=== PATIENT | female | born 1965 | race Caucasian/White ===

== ENCOUNTER 2020-11-19 17:51 | Inpatient (IN) ==
[2020-11-19] MEDS ORDERED: Albuterol 2.5 MG/3 ML NEBULIZER AER PRN (18:48)
[2020-11-19] MEDS ORDERED: Nitroglycerin 0.4 MG TAB.SUBL SL PRN (18:48)
[2020-11-19] MEDS ORDERED: tiZANidine 4 MG TABLET PO PRN (18:48)
[2020-11-19] MEDS ORDERED: (Diclofenac Sodium [Voltaren] 100 GM Gel..Gram.) TP PRN (18:48)
[2020-11-19] MEDS ORDERED: Divalproex (12 HR) 250 MG TABLET PO SCH (21:00)
[2020-11-20] MEDS: Furosemide 40 MG TABLET PO SCH ×4 (00:45→21:24)
[2020-11-20] MEDS: Gabapentin 400 MG CAPSULE PO SCH ×4 (00:45→21:23)
[2020-11-20 04:27] LABS: Basophils % 0.3 %; Eosinophils # 0.4 K/mcL (0.0-0.6); Eosinophils % 6.5 %; Hemoglobin 9.1 g/dL (11.5-15.4); Lymphocytes # 1.9 K/mcL (0.6-4.6); Lymphocytes % 31.3 %; Mean Corpuscular HGB Conc 28.4 g/dL (31.6-35.5); Mean Corpuscular Hemoglobin 27.7 pg (28.0-33.3); Mean Corpuscular Volume 97.3 fL (83.0-100.0); Mean Platelet Volume 9.3 fL (9.4-12.4); Monocytes # 0.7 K/mcL (0.0-1.3); Monocytes % 12.1 %; Platelet Count 221 K/mcL (140-400); Red Blood Count 3.29 M/mcL (3.82-4.97); Red Cell Distribution Width 25.1 % (11.5-14.5); Segmented Neutrophils % 48.8 %
[2020-11-20 04:40] LABS: INR 1.5
[2020-11-20 04:47] LABS: BUN/Creatinine Ratio 18 (6-26); Blood Urea Nitrogen 12 mg/dL (6-20); Calcium 8.4 mg/dL (8.6-10.3); Carbon Dioxide 34 mEq/L (23-29); Chloride 98 mEq/L (98-107); Glucose 111 mg/dL (70-105); Osmolality,Calculated 284 (280-300); Potassium 3.4 mEq/L (3.5-5.1); Sodium 137 mEq/L (136-145); eGFR For African Americans > 60 (> 60); eGFR For Non-African Americans > 60 (> 60)
[2020-11-20] MEDS: Ipratropium/Albuterol Neb 3 ML IH SCH ×4 (07:07→21:50)
[2020-11-20] MEDS ORDERED: Insulin LISPRO 300 UNITS/3 ML VIAL SUBQ SCH (08:00)
[2020-11-20] MEDS ORDERED: Azelastine 0.1% Nasal Spray 30 ML BOTTLE NS PRN (09:00)
[2020-11-20] MEDS: *HR* Metformin 500 MG TABLET PO SCH ×2 (09:05→16:14)
[2020-11-20] MEDS: Divalproex (12 HR) 250 MG TABLET PO SCH ×2 (09:07→21:23)
[2020-11-20] MEDS: Metoprolol XL (24 HR) Succ 25 MG TAB.ER.24H PO SCH (09:08)
[2020-11-20] MEDS: rOPINIRole 1 MG TABLET PO SCH ×3 (09:08→21:23)
[2020-11-20] MEDS: Loratadine 10 MG TABLET PO SCH (09:08)
[2020-11-20] MEDS: Aspirin Enteric Coated 81 MG Tablet PO SCH (09:09)
[2020-11-20] MEDS: (Liraglutide [Victoza 3-Pak] 0.6 MG/0.1 ML Pen.Injctr) SQ SCH (09:09)
[2020-11-20] MEDS: Magnesium Oxide 400 MG TABLET PO SCH (09:09)
[2020-11-20] MEDS: DilTIAZem CD (24hr) 120 MG CAP.ER.24H PO SCH (09:09)
[2020-11-20] MEDS: Tiotropium 10 INH DOSE IH SCH (11:00)
[2020-11-20] MEDS: Budesonide/Formoterol 160/4.5 1 PUFF INH IH SCH ×2 (11:00→21:49)
[2020-11-20] MEDS: Insulin LISPRO 300 UNITS/3 ML VIAL SUBQ SCH ×3 (11:13→21:14)
[2020-11-20] MEDS ORDERED: *HR* Warfarin 2 MG TABLET PO SCH (18:00)
[2020-11-20] MEDS ORDERED: Lactulose Oral Soln 20 GM/30 ML UDC PO SCH (21:00)
[2020-11-20] MEDS: Mirtazapine 15 MG TABLET PO SCH (21:23)
[2020-11-20] MEDS: Insulin DETEMIR 100 UNIT/ML per UNIT SUBQ SCH (21:24)
[2020-11-20] MEDS: Lactulose Oral Soln 20 GM/30 ML UDC PO SCH (21:35)
[2020-11-21] MEDS: Ipratropium/Albuterol Neb 3 ML IH SCH ×3 (04:29→15:58)
[2020-11-21] MEDS: Insulin LISPRO 300 UNITS/3 ML VIAL SUBQ SCH ×4 (08:05→21:00)
[2020-11-21] MEDS: Lactulose Oral Soln 20 GM/30 ML UDC PO SCH ×3 (08:26→21:11)
[2020-11-21] MEDS: Loratadine 10 MG TABLET PO SCH (08:26)
[2020-11-21] MEDS: Aspirin Enteric Coated 81 MG Tablet PO SCH (08:27)
[2020-11-21] MEDS: Divalproex (12 HR) 250 MG TABLET PO SCH ×2 (08:27→21:10)
[2020-11-21] MEDS: Gabapentin 400 MG CAPSULE PO SCH ×3 (08:27→21:10)
[2020-11-21] MEDS: Magnesium Oxide 400 MG TABLET PO SCH (08:28)
[2020-11-21] MEDS: Metoprolol XL (24 HR) Succ 25 MG TAB.ER.24H PO SCH (08:28)
[2020-11-21] MEDS: Furosemide 40 MG TABLET PO SCH ×2 (08:28→21:11)
[2020-11-21] MEDS: (Liraglutide [Victoza 3-Pak] 0.6 MG/0.1 ML Pen.Injctr) SQ SCH (08:29)
[2020-11-21] MEDS: DilTIAZem CD (24hr) 120 MG CAP.ER.24H PO SCH (08:30)
[2020-11-21] MEDS: rOPINIRole 1 MG TABLET PO SCH ×3 (08:48→21:10)
[2020-11-21 09:43] LABS: INR 1.3; Prothrombin Time 15.3 Seconds (9.4-12.1)
[2020-11-21 09:49] LABS: Basophils % 0.5 %; Eosinophils # 0.4 K/mcL (0.0-0.6); Eosinophils % 6.7 %; Hematocrit 39.5 % (35.3-44.9); Immature Granulocytes % 1.1 % (0-4); Lymphocytes % 32.2 %; Mean Corpuscular HGB Conc 27.8 g/dL (31.6-35.5); Mean Corpuscular Hemoglobin 27.8 pg (28.0-33.3); Mean Corpuscular Volume 99.7 fL (83.0-100.0); Mean Platelet Volume 10.4 fL (9.4-12.4); Monocytes # 0.7 K/mcL (0.0-1.3); Monocytes % 11.3 %; Platelet Count 274 K/mcL (140-400); Red Blood Count 3.96 M/mcL (3.82-4.97); Red Cell Distribution Width 24.9 % (11.5-14.5); Segmented Neutrophils % 48.2 %; White Blood Count 6.3 K/mcL (4.3-11.1)
[2020-11-21] MEDS: Tiotropium 10 INH DOSE IH SCH (09:55)
[2020-11-21] MEDS: Budesonide/Formoterol 160/4.5 1 PUFF INH IH SCH ×2 (09:56→22:08)
[2020-11-21 10:02] LABS: Anisocytosis 3+ (Not Present); Hypochromasia Present (Not Present)
[2020-11-21 10:02] LABS: Alanine Aminotransferase 4 Units/L (7-52); Albumin 3.5 g/dL (3.5-5.7); Albumin/Globulin Ratio 0.9 (1.1-2.2); Alkaline Phosphatase 144 Units/L (34-104); Aspartate Amino Transferase 13 Units/L (13-39); BUN/Creatinine Ratio 14 (6-26); Bilirubin,Total 0.4 mg/dL (0.3-1.0); Blood Urea Nitrogen 14 mg/dL (6-20); Calcium 8.8 mg/dL (8.6-10.3); Carbon Dioxide 32 mEq/L (23-29); Chloride 98 mEq/L (98-107); Globulin 4.1 g/dL (2.4-3.5); Glucose 85 mg/dL (70-105); Osmolality,Calculated 290 (280-300); Potassium 4.2 mEq/L (3.5-5.1); Sodium 140 mEq/L (136-145); Total Protein 7.6 g/dL (6.4-8.9); eGFR For African Americans > 60 (> 60); eGFR For Non-African Americans 56 (> 60)
[2020-11-21 10:03] LABS: Poikilocytosis 1+ (Not Present)
[2020-11-21] MEDS ORDERED: Ipratropium/Albuterol Neb 3 ML IH PRN (16:12)
[2020-11-21] MEDS ORDERED: *HR* Warfarin 2 MG TABLET PO ONE (18:00)
[2020-11-21] MEDS ORDERED: Warfarin perPT PO PRN (18:00)
[2020-11-21] MEDS: *HR* HYDROcodone/Acet 10/325 mg TABLET PO PRN (18:17)
[2020-11-21] MEDS: Mirtazapine 15 MG TABLET PO SCH (21:10)
[2020-11-21] MEDS: Insulin DETEMIR 100 UNIT/ML per UNIT SUBQ SCH (21:11)
[2020-11-22] MEDS: Insulin LISPRO 300 UNITS/3 ML VIAL SUBQ SCH ×4 (07:52→20:40)
[2020-11-22 09:17] LABS: Basophils % 0.2 %; Eosinophils # 0.3 K/mcL (0.0-0.6); Eosinophils % 6.2 %; Hematocrit 36.4 % (35.3-44.9); Hemoglobin 10.2 g/dL (11.5-15.4); Immature Granulocytes % 1.3 % (0-4); Lymphocytes # 1.6 K/mcL (0.6-4.6); Lymphocytes % 29.3 %; Mean Corpuscular Hemoglobin 27.9 pg (28.0-33.3); Mean Corpuscular Volume 99.7 fL (83.0-100.0); Mean Platelet Volume 9.6 fL (9.4-12.4); Monocytes # 0.6 K/mcL (0.0-1.3); Monocytes % 11.6 %; Neutrophils # 2.8 K/mcL (1.6-8.9); Platelet Count 215 K/mcL (140-400); Red Blood Count 3.65 M/mcL (3.82-4.97); Segmented Neutrophils % 51.4 %; White Blood Count 5.5 K/mcL (4.3-11.1)
[2020-11-22] MEDS: Budesonide/Formoterol 160/4.5 1 PUFF INH IH SCH ×2 (09:23→22:29)
[2020-11-22] MEDS: Tiotropium 10 INH DOSE IH SCH (09:24)
[2020-11-22 09:27] LABS: INR 1.4; Prothrombin Time 16.3 Seconds (9.4-12.1)
[2020-11-22 09:35] LABS: Alanine Aminotransferase 3 Units/L (7-52); Albumin 3.4 g/dL (3.5-5.7); Albumin/Globulin Ratio 0.9 (1.1-2.2); Alkaline Phosphatase 136 Units/L (34-104); Aspartate Amino Transferase 12 Units/L (13-39); BUN/Creatinine Ratio 18 (6-26); Bilirubin,Total 0.4 mg/dL (0.3-1.0); Blood Urea Nitrogen 16 mg/dL (6-20); Calcium 8.8 mg/dL (8.6-10.3); Carbon Dioxide 38 mEq/L (23-29); Chloride 100 mEq/L (98-107); Globulin 3.7 g/dL (2.4-3.5); Glucose 60 mg/dL (70-105); Osmolality,Calculated 295 (280-300); Potassium 4.4 mEq/L (3.5-5.1); Sodium 143 mEq/L (136-145); Total Protein 7.1 g/dL (6.4-8.9); eGFR For African Americans > 60 (> 60); eGFR For Non-African Americans > 60 (> 60)
[2020-11-22] MEDS: rOPINIRole 1 MG TABLET PO SCH ×3 (09:54→21:35)
[2020-11-22] MEDS: Furosemide 40 MG TABLET PO SCH ×2 (09:55→16:46)
[2020-11-22] MEDS: Metoprolol XL (24 HR) Succ 25 MG TAB.ER.24H PO SCH (09:56)
[2020-11-22] MEDS: Divalproex (12 HR) 250 MG TABLET PO SCH ×2 (09:56→21:35)
[2020-11-22] MEDS: Loratadine 10 MG TABLET PO SCH (09:56)
[2020-11-22] MEDS: Magnesium Oxide 400 MG TABLET PO SCH (09:56)
[2020-11-22] MEDS: DilTIAZem CD (24hr) 120 MG CAP.ER.24H PO SCH (09:56)
[2020-11-22] MEDS: Lactulose Oral Soln 20 GM/30 ML UDC PO SCH ×3 (09:56→21:35)
[2020-11-22] MEDS: Aspirin Enteric Coated 81 MG Tablet PO SCH (09:56)
[2020-11-22] MEDS: (Liraglutide [Victoza 3-Pak] 0.6 MG/0.1 ML Pen.Injctr) SQ SCH (09:57)
[2020-11-22] MEDS: Gabapentin 400 MG CAPSULE PO SCH ×3 (09:57→21:35)
[2020-11-22 10:26] LABS: Anisocytosis 1+ (Not Present); Hypochromasia Present (Not Present); Platelet Estimate Normal (Normal)
[2020-11-22] MEDS ORDERED: *HR* Warfarin 3 MG TABLET PO ONE (18:00)
[2020-11-22] MEDS: Mirtazapine 15 MG TABLET PO SCH (21:36)
[2020-11-22] MEDS: tiZANidine 4 MG TABLET PO PRN (21:36)
[2020-11-22] MEDS: Insulin DETEMIR 100 UNIT/ML per UNIT SUBQ SCH (21:36)
[2020-11-23] MEDS: Furosemide 40 MG TABLET PO SCH ×2 (06:47→15:02)
[2020-11-23] MEDS: Insulin LISPRO 300 UNITS/3 ML VIAL SUBQ SCH ×4 (07:35→21:38)
[2020-11-23] MEDS: Budesonide/Formoterol 160/4.5 1 PUFF INH IH SCH ×2 (09:08→21:51)
[2020-11-23] MEDS: Tiotropium 10 INH DOSE IH SCH (09:08)
[2020-11-23] MEDS: Lactulose Oral Soln 20 GM/30 ML UDC PO SCH ×3 (09:44→21:29)
[2020-11-23] MEDS: Divalproex (12 HR) 250 MG TABLET PO SCH ×2 (09:45→21:28)
[2020-11-23] MEDS: rOPINIRole 1 MG TABLET PO SCH ×3 (09:45→21:28)
[2020-11-23] MEDS: Aspirin Enteric Coated 81 MG Tablet PO SCH (09:46)
[2020-11-23] MEDS: Magnesium Oxide 400 MG TABLET PO SCH (09:46)
[2020-11-23] MEDS: Gabapentin 400 MG CAPSULE PO SCH ×3 (09:47→21:28)
[2020-11-23] MEDS: DilTIAZem CD (24hr) 120 MG CAP.ER.24H PO SCH (09:47)
[2020-11-23] MEDS: Loratadine 10 MG TABLET PO SCH (09:47)
[2020-11-23] MEDS: Metoprolol XL (24 HR) Succ 25 MG TAB.ER.24H PO SCH (09:48)
[2020-11-23] MEDS: (Liraglutide [Victoza 3-Pak] 0.6 MG/0.1 ML Pen.Injctr) SQ SCH (09:48)
[2020-11-23 13:29] LABS: Basophils % 0.4 %; Eosinophils # 0.4 K/mcL (0.0-0.6); Hematocrit 38.4 % (35.3-44.9); Hemoglobin 10.9 g/dL (11.5-15.4); Immature Granulocytes % 0.6 % (0-4); Lymphocytes # 1.4 K/mcL (0.6-4.6); Lymphocytes % 20.2 %; Mean Corpuscular HGB Conc 28.4 g/dL (31.6-35.5); Mean Corpuscular Volume 98.7 fL (83.0-100.0); Mean Platelet Volume 10.6 fL (9.4-12.4); Monocytes # 0.8 K/mcL (0.0-1.3); Monocytes % 11.8 %; Neutrophils # 4.4 K/mcL (1.6-8.9); Platelet Count 218 K/mcL (140-400); Red Blood Count 3.89 M/mcL (3.82-4.97); Red Cell Distribution Width 23.9 % (11.5-14.5); White Blood Count 7.1 K/mcL (4.3-11.1)
[2020-11-23 13:38] LABS: INR 1.4; Prothrombin Time 15.7 Seconds (9.4-12.1)
[2020-11-23 13:46] LABS: Alanine Aminotransferase 3 Units/L (7-52); Albumin 3.4 g/dL (3.5-5.7); Albumin/Globulin Ratio 0.9 (1.1-2.2); Alkaline Phosphatase 143 Units/L (34-104); Aspartate Amino Transferase 16 Units/L (13-39); BUN/Creatinine Ratio 15 (6-26); Bilirubin,Total 0.4 mg/dL (0.3-1.0); Blood Urea Nitrogen 13 mg/dL (6-20); Calcium 8.7 mg/dL (8.6-10.3); Carbon Dioxide 37 mEq/L (23-29); Chloride 99 mEq/L (98-107); Globulin 3.7 g/dL (2.4-3.5); Glucose 101 mg/dL (70-105); Osmolality,Calculated 296 (280-300); Potassium 4.4 mEq/L (3.5-5.1); Sodium 143 mEq/L (136-145); Total Protein 7.1 g/dL (6.4-8.9); eGFR For African Americans > 60 (> 60); eGFR For Non-African Americans > 60 (> 60)
[2020-11-23 14:27] LABS: Anisocytosis 1+ (Not Present); Hypochromasia Present (Not Present); Platelet Estimate Normal (Normal)
[2020-11-23] MEDS ORDERED: *HR* Warfarin 2 MG TABLET PO ONE (18:00)
[2020-11-23] MEDS: *HR* HYDROcodone/Acet 10/325 mg TABLET PO PRN (18:01)
[2020-11-23] MEDS: Mirtazapine 15 MG TABLET PO SCH (21:28)
[2020-11-23] MEDS: tiZANidine 4 MG TABLET PO PRN (21:38)
[2020-11-23] MEDS: Insulin DETEMIR 100 UNIT/ML X5UNITS SUBQ SCH (21:40)
[2020-11-24] MEDS: Furosemide 40 MG TABLET PO SCH ×2 (05:14→14:58)
[2020-11-24 08:01] LABS: INR 1.3; Prothrombin Time 15.3 Seconds (9.4-12.1)
[2020-11-24] MEDS: Lactulose Oral Soln 20 GM/30 ML UDC PO SCH ×3 (08:18→21:16)
[2020-11-24] MEDS: Divalproex (12 HR) 250 MG TABLET PO SCH ×2 (08:20→21:16)
[2020-11-24] MEDS: rOPINIRole 1 MG TABLET PO SCH ×3 (08:20→21:16)
[2020-11-24] MEDS: Aspirin Enteric Coated 81 MG Tablet PO SCH (08:20)
[2020-11-24] MEDS: (Liraglutide [Victoza 3-Pak] 0.6 MG/0.1 ML Pen.Injctr) SQ SCH (08:21)
[2020-11-24] MEDS: Loratadine 10 MG TABLET PO SCH (08:21)
[2020-11-24] MEDS: DilTIAZem CD (24hr) 120 MG CAP.ER.24H PO SCH (08:21)
[2020-11-24] MEDS: Gabapentin 400 MG CAPSULE PO SCH ×3 (08:21→21:16)
[2020-11-24] MEDS: Magnesium Oxide 400 MG TABLET PO SCH (08:21)
[2020-11-24] MEDS: Metoprolol XL (24 HR) Succ 25 MG TAB.ER.24H PO SCH (08:22)
[2020-11-24] MEDS: Insulin LISPRO 300 UNITS/3 ML VIAL SUBQ SCH ×4 (08:22→21:17)
[2020-11-24] MEDS: Budesonide/Formoterol 160/4.5 1 PUFF INH IH SCH ×2 (10:37→21:59)
[2020-11-24] MEDS: Tiotropium 10 INH DOSE IH SCH (10:37)
[2020-11-24] MEDS: *HR* HYDROcodone/Acet 10/325 mg TABLET PO PRN (16:02)
[2020-11-24] MEDS ORDERED: *HR* Warfarin 2 MG TABLET PO ONE (18:00)
[2020-11-24] MEDS: Insulin DETEMIR 100 UNIT/ML X5UNITS SUBQ SCH (21:16)
[2020-11-24] MEDS: Mirtazapine 15 MG TABLET PO SCH (21:16)
[2020-11-24] MEDS: tiZANidine 4 MG TABLET PO PRN (21:17)
[2020-11-25] MEDS: *HR* HYDROcodone/Acet 10/325 mg TABLET PO PRN ×2 (05:13→15:32)
[2020-11-25] MEDS: Furosemide 40 MG TABLET PO SCH ×2 (05:13→15:24)
[2020-11-25 07:12] LABS: INR 1.5; Prothrombin Time 17.1 Seconds (9.4-12.1)
[2020-11-25] MEDS: DilTIAZem CD (24hr) 120 MG CAP.ER.24H PO SCH (08:45)
[2020-11-25] MEDS: Lactulose Oral Soln 20 GM/30 ML UDC PO SCH ×3 (08:45→21:46)
[2020-11-25] MEDS: Divalproex (12 HR) 250 MG TABLET PO SCH ×2 (08:46→21:45)
[2020-11-25] MEDS: Magnesium Oxide 400 MG TABLET PO SCH (08:47)
[2020-11-25] MEDS: Gabapentin 400 MG CAPSULE PO SCH ×3 (08:47→21:45)
[2020-11-25] MEDS: rOPINIRole 1 MG TABLET PO SCH ×3 (08:47→21:44)
[2020-11-25] MEDS: Loratadine 10 MG TABLET PO SCH (08:47)
[2020-11-25] MEDS: Aspirin Enteric Coated 81 MG Tablet PO SCH (08:47)
[2020-11-25] MEDS: Insulin LISPRO 300 UNITS/3 ML VIAL SUBQ SCH ×4 (08:48→22:05)
[2020-11-25] MEDS: Tiotropium 10 INH DOSE IH SCH (10:12)
[2020-11-25] MEDS: Budesonide/Formoterol 160/4.5 1 PUFF INH IH SCH ×2 (10:12→22:04)
[2020-11-25] MEDS: (Liraglutide [Victoza 3-Pak] 0.6 MG/0.1 ML Pen.Injctr) SQ SCH (12:13)
[2020-11-25] MEDS ORDERED: *HR* Warfarin 5 MG TABLET PO ONE (18:00)
[2020-11-25] MEDS: Mirtazapine 15 MG TABLET PO SCH (21:45)
[2020-11-25] MEDS: Insulin DETEMIR 100 UNIT/ML X5UNITS SUBQ SCH (21:46)
[2020-11-26] MEDS: Furosemide 40 MG TABLET PO SCH ×2 (04:57→15:03)
[2020-11-26 05:30] LABS: INR 1.6; Prothrombin Time 18.3 Seconds (9.4-12.1)
[2020-11-26] MEDS ORDERED: *HR* Heparin 5,000 UNIT/ML VIAL SQ SCH (08:45)
[2020-11-26] MEDS: Aspirin Enteric Coated 81 MG Tablet PO SCH (09:07)
[2020-11-26] MEDS: *HR* HYDROcodone/Acet 10/325 mg TABLET PO PRN (09:07)
[2020-11-26] MEDS: DilTIAZem CD (24hr) 120 MG CAP.ER.24H PO SCH (09:07)
[2020-11-26] MEDS: rOPINIRole 1 MG TABLET PO SCH ×3 (09:07→20:18)
[2020-11-26] MEDS: Loratadine 10 MG TABLET PO SCH (09:08)
[2020-11-26] MEDS: Lactulose Oral Soln 20 GM/30 ML UDC PO SCH ×3 (09:08→20:16)
[2020-11-26] MEDS: Magnesium Oxide 400 MG TABLET PO SCH (09:08)
[2020-11-26] MEDS: Divalproex (12 HR) 250 MG TABLET PO SCH ×2 (09:08→20:17)
[2020-11-26] MEDS: Gabapentin 400 MG CAPSULE PO SCH ×3 (09:08→20:17)
[2020-11-26] MEDS: (Liraglutide [Victoza 3-Pak] 0.6 MG/0.1 ML Pen.Injctr) SQ SCH (09:09)
[2020-11-26] MEDS: Insulin LISPRO 300 UNITS/3 ML VIAL SUBQ SCH ×4 (09:09→20:18)
[2020-11-26] MEDS: Tiotropium 10 INH DOSE IH SCH (09:15)
[2020-11-26] MEDS: Budesonide/Formoterol 160/4.5 1 PUFF INH IH SCH ×2 (09:16→21:40)
[2020-11-26] MEDS ORDERED: *HR* Warfarin 5 MG TABLET PO ONE (18:00)
[2020-11-26] MEDS: Mirtazapine 15 MG TABLET PO SCH (20:17)
[2020-11-26] MEDS: Insulin DETEMIR 100 UNIT/ML X5UNITS SUBQ SCH (20:18)
[2020-11-26] MEDS: Acetaminophen 325 MG TABLET PO PRN (20:57)
[2020-11-27] MEDS: Furosemide 40 MG TABLET PO SCH ×2 (05:44→16:47)
[2020-11-27 07:06] LABS: INR 1.9; Prothrombin Time 21.7 Seconds (9.4-12.1)
[2020-11-27] MEDS: Insulin LISPRO 300 UNITS/3 ML VIAL SUBQ SCH ×4 (07:50→21:02)
[2020-11-27] MEDS: Aspirin Enteric Coated 81 MG Tablet PO SCH (09:05)
[2020-11-27] MEDS: Gabapentin 400 MG CAPSULE PO SCH ×3 (09:05→21:01)
[2020-11-27] MEDS: Lactulose Oral Soln 20 GM/30 ML UDC PO SCH ×3 (09:05→21:01)
[2020-11-27] MEDS: Divalproex (12 HR) 250 MG TABLET PO SCH ×2 (09:06→21:02)
[2020-11-27] MEDS: Loratadine 10 MG TABLET PO SCH (09:06)
[2020-11-27] MEDS: rOPINIRole 1 MG TABLET PO SCH ×3 (09:06→21:01)
[2020-11-27] MEDS: Magnesium Oxide 400 MG TABLET PO SCH (09:06)
[2020-11-27] MEDS: (Liraglutide [Victoza 3-Pak] 0.6 MG/0.1 ML Pen.Injctr) SQ SCH (09:07)
[2020-11-27] MEDS: DilTIAZem CD (24hr) 120 MG CAP.ER.24H PO SCH (09:07)
[2020-11-27] MEDS: Budesonide/Formoterol 160/4.5 1 PUFF INH IH SCH ×2 (09:37→21:46)
[2020-11-27] MEDS: Tiotropium 10 INH DOSE IH SCH (09:38)
[2020-11-27] MEDS ORDERED: *HR* Warfarin 5 MG TABLET PO ONE (18:00)
[2020-11-27] MEDS: Mirtazapine 15 MG TABLET PO SCH (21:01)
[2020-11-27] MEDS: Insulin DETEMIR 100 UNIT/ML X5UNITS SUBQ SCH (21:03)
[2020-11-28] MEDS: Furosemide 40 MG TABLET PO SCH ×2 (05:33→15:17)
[2020-11-28] MEDS: Insulin LISPRO 300 UNITS/3 ML VIAL SUBQ SCH ×4 (07:36→20:29)
[2020-11-28 07:47] LABS: Prothrombin Time 23.1 Seconds (9.4-12.1)
[2020-11-28] MEDS: Gabapentin 400 MG CAPSULE PO SCH ×3 (09:32→20:23)
[2020-11-28] MEDS: DilTIAZem CD (24hr) 120 MG CAP.ER.24H PO SCH (09:32)
[2020-11-28] MEDS: Magnesium Oxide 400 MG TABLET PO SCH (09:32)
[2020-11-28] MEDS: Divalproex (12 HR) 250 MG TABLET PO SCH ×2 (09:33→20:24)
[2020-11-28] MEDS: Aspirin Enteric Coated 81 MG Tablet PO SCH (09:33)
[2020-11-28] MEDS: Loratadine 10 MG TABLET PO SCH (09:33)
[2020-11-28] MEDS: (Liraglutide [Victoza 3-Pak] 0.6 MG/0.1 ML Pen.Injctr) SQ SCH (09:37)
[2020-11-28] MEDS: Lactulose Oral Soln 20 GM/30 ML UDC PO SCH ×3 (09:38→20:25)
[2020-11-28] MEDS: rOPINIRole 1 MG TABLET PO SCH ×3 (09:39→20:23)
[2020-11-28] MEDS: Budesonide/Formoterol 160/4.5 1 PUFF INH IH SCH ×2 (10:22→22:05)
[2020-11-28] MEDS: Tiotropium 10 INH DOSE IH SCH (10:24)
[2020-11-28] MEDS ORDERED: *HR* Warfarin 5 MG TABLET PO ONE (18:00)
[2020-11-28] MEDS: Mirtazapine 15 MG TABLET PO SCH (20:24)
[2020-11-28] MEDS: Insulin DETEMIR 100 UNIT/ML X5UNITS SUBQ SCH (21:00)
[2020-11-29] MEDS: Furosemide 40 MG TABLET PO SCH ×2 (05:57→15:11)
[2020-11-29 07:26] LABS: INR 2.1; Prothrombin Time 23.6 Seconds (9.4-12.1)
[2020-11-29] MEDS: Insulin LISPRO 300 UNITS/3 ML VIAL SUBQ SCH ×4 (07:30→21:50)
[2020-11-29 08:39] LABS: BUN/Creatinine Ratio 13 (6-26); Blood Urea Nitrogen 9 mg/dL (6-20); Calcium 8.7 mg/dL (8.6-10.3); Carbon Dioxide 40 mEq/L (23-29); Chloride 94 mEq/L (98-107); Glucose 76 mg/dL (70-105); Osmolality,Calculated 281 (280-300); Potassium 3.6 mEq/L (3.5-5.1); Sodium 137 mEq/L (136-145); eGFR For African Americans > 60 (> 60); eGFR For Non-African Americans > 60 (> 60)
[2020-11-29] MEDS: rOPINIRole 1 MG TABLET PO SCH ×3 (08:47→21:50)
[2020-11-29] MEDS: Divalproex (12 HR) 250 MG TABLET PO SCH ×2 (08:47→21:49)
[2020-11-29] MEDS: DilTIAZem CD (24hr) 120 MG CAP.ER.24H PO SCH (08:48)
[2020-11-29] MEDS: *HR* HYDROcodone/Acet 10/325 mg TABLET PO PRN ×2 (08:48→21:49)
[2020-11-29] MEDS: Magnesium Oxide 400 MG TABLET PO SCH (08:48)
[2020-11-29] MEDS: Gabapentin 400 MG CAPSULE PO SCH ×3 (08:48→21:50)
[2020-11-29] MEDS: Aspirin Enteric Coated 81 MG Tablet PO SCH (08:48)
[2020-11-29] MEDS: Loratadine 10 MG TABLET PO SCH (08:48)
[2020-11-29] MEDS: Lactulose Oral Soln 20 GM/30 ML UDC PO SCH ×3 (08:49→21:50)
[2020-11-29] MEDS: (Liraglutide [Victoza 3-Pak] 0.6 MG/0.1 ML Pen.Injctr) SQ SCH (08:50)
[2020-11-29 09:17] LABS: Basophils % 0.2 %; Eosinophils # 0.3 K/mcL (0.0-0.6); Eosinophils % 4.4 %; Hematocrit 32.6 % (35.3-44.9); Hemoglobin 9.6 g/dL (11.5-15.4); Immature Granulocytes % 0.3 % (0-4); Lymphocytes # 1.7 K/mcL (0.6-4.6); Mean Corpuscular HGB Conc 29.4 g/dL (31.6-35.5); Mean Corpuscular Hemoglobin 29.1 pg (28.0-33.3); Mean Corpuscular Volume 98.8 fL (83.0-100.0); Mean Platelet Volume 11.5 fL (9.4-12.4); Monocytes # 0.5 K/mcL (0.0-1.3); Monocytes % 8.7 %; Neutrophils # 3.7 K/mcL (1.6-8.9); Platelet Count 168 K/mcL (140-400); Red Cell Distribution Width 21.4 % (11.5-14.5); Segmented Neutrophils % 59.4 %; White Blood Count 6.2 K/mcL (4.3-11.1)
[2020-11-29] MEDS: Tiotropium 10 INH DOSE IH SCH (10:48)
[2020-11-29] MEDS: Budesonide/Formoterol 160/4.5 1 PUFF INH IH SCH ×2 (10:49→22:17)
[2020-11-29] MEDS ORDERED: *HR* Warfarin 5 MG TABLET PO ONE (18:00)
[2020-11-29] MEDS: tiZANidine 4 MG TABLET PO PRN (21:50)
[2020-11-29] MEDS: Mirtazapine 15 MG TABLET PO SCH (21:50)
[2020-11-29] MEDS: Insulin DETEMIR 100 UNIT/ML X5UNITS SUBQ SCH (21:51)
[2020-11-30] MEDS: Furosemide 40 MG TABLET PO SCH ×2 (06:25→15:56)
[2020-11-30 07:47] LABS: INR 2.2; Prothrombin Time 24.7 Seconds (9.4-12.1)
[2020-11-30] MEDS: Lactulose Oral Soln 20 GM/30 ML UDC PO SCH ×4 (10:10→20:21)
[2020-11-30] MEDS: Gabapentin 400 MG CAPSULE PO SCH ×3 (10:10→20:22)
[2020-11-30] MEDS: Loratadine 10 MG TABLET PO SCH (10:11)
[2020-11-30] MEDS: Aspirin Enteric Coated 81 MG Tablet PO SCH (10:11)
[2020-11-30] MEDS: DilTIAZem CD (24hr) 120 MG CAP.ER.24H PO SCH (10:11)
[2020-11-30] MEDS: Magnesium Oxide 400 MG TABLET PO SCH (10:11)
[2020-11-30] MEDS: rOPINIRole 1 MG TABLET PO SCH ×3 (10:12→20:22)
[2020-11-30] MEDS: (Liraglutide [Victoza 3-Pak] 0.6 MG/0.1 ML Pen.Injctr) SQ SCH (10:12)
[2020-11-30] MEDS: Divalproex (12 HR) 250 MG TABLET PO SCH ×2 (10:12→20:21)
[2020-11-30] MEDS: Insulin LISPRO 300 UNITS/3 ML VIAL SUBQ SCH ×4 (10:12→20:24)
[2020-11-30] MEDS: Budesonide/Formoterol 160/4.5 1 PUFF INH IH SCH ×2 (10:37→21:32)
[2020-11-30] MEDS: Tiotropium 10 INH DOSE IH SCH (10:37)
[2020-11-30] MEDS: *HR* HYDROcodone/Acet 10/325 mg TABLET PO PRN ×2 (12:43→21:57)
[2020-11-30] MEDS ORDERED: *HR* Warfarin 5 MG TABLET PO ONE (18:00)
[2020-11-30] MEDS: Mirtazapine 15 MG TABLET PO SCH (20:22)
[2020-11-30] MEDS: Insulin DETEMIR 100 UNIT/ML X5UNITS SUBQ SCH (20:32)
[2020-12-01] MEDS: Furosemide 40 MG TABLET PO SCH (06:41)
[2020-12-01] MEDS: *HR* HYDROcodone/Acet 10/325 mg TABLET PO PRN (06:42)
[2020-12-01 07:17] LABS: INR 2.1; Prothrombin Time 23.6 Seconds (9.4-12.1)
[2020-12-01] MEDS ORDERED: Acetaminophen 325 MG TABLET PO ONE (07:23)
[2020-12-01] MEDS: Lactulose Oral Soln 20 GM/30 ML UDC PO SCH ×4 (07:33→20:53)
[2020-12-01] MEDS: Divalproex (12 HR) 250 MG TABLET PO SCH (07:34)
[2020-12-01] MEDS: Aspirin Enteric Coated 81 MG Tablet PO SCH (07:34)
[2020-12-01] MEDS: rOPINIRole 1 MG TABLET PO SCH ×3 (07:34→20:53)
[2020-12-01] MEDS: Gabapentin 400 MG CAPSULE PO SCH (07:34)
[2020-12-01] MEDS: DilTIAZem CD (24hr) 120 MG CAP.ER.24H PO SCH (07:34)
[2020-12-01] MEDS: Loratadine 10 MG TABLET PO SCH (07:34)
[2020-12-01] MEDS: Magnesium Oxide 400 MG TABLET PO SCH (07:35)
[2020-12-01] MEDS: Acetaminophen 325 MG TABLET PO PRN (07:39)
[2020-12-01] MEDS: (Liraglutide [Victoza 3-Pak] 0.6 MG/0.1 ML Pen.Injctr) SQ SCH (07:45)
[2020-12-01 08:07] LABS: Basophils % 0.2 %; Eosinophils # 0.5 K/mcL (0.0-0.6); Eosinophils % 3.7 %; Hematocrit 32.2 % (35.3-44.9); Hemoglobin 9.3 g/dL (11.5-15.4); Immature Granulocytes % 0.5 % (0-4); Lymphocytes % 7.9 %; Mean Corpuscular HGB Conc 28.9 g/dL (31.6-35.5); Mean Corpuscular Hemoglobin 29.2 pg (28.0-33.3); Mean Corpuscular Volume 101.3 fL (83.0-100.0); Mean Platelet Volume 10.3 fL (9.4-12.4); Monocytes # 1.1 K/mcL (0.0-1.3); Monocytes % 8.8 %; Nucleated Red Blood Cells 0.2 /100 WBC (0); Platelet Count 175 K/mcL (140-400); Red Blood Count 3.18 M/mcL (3.82-4.97); Red Cell Distribution Width 21.2 % (11.5-14.5); Segmented Neutrophils % 78.9 %; White Blood Count 12.1 K/mcL (4.3-11.1)
[2020-12-01 08:16] LABS: Alanine Aminotransferase 16 Units/L (7-52); Albumin 3.2 g/dL (3.5-5.7); Albumin/Globulin Ratio 0.9 (1.1-2.2); Alkaline Phosphatase 136 Units/L (34-104); Aspartate Amino Transferase 30 Units/L (13-39); BUN/Creatinine Ratio 11 (6-26); Bilirubin,Total 0.4 mg/dL (0.3-1.0); Blood Urea Nitrogen 9 mg/dL (6-20); Calcium 8.4 mg/dL (8.6-10.3); Carbon Dioxide 38 mEq/L (23-29); Chloride 97 mEq/L (98-107); Globulin 3.5 g/dL (2.4-3.5); Glucose 199 mg/dL (70-105); Osmolality,Calculated 288 (280-300); Potassium 4.7 mEq/L (3.5-5.1); Sodium 137 mEq/L (136-145); Total Protein 6.7 g/dL (6.4-8.9); eGFR For African Americans > 60 (> 60); eGFR For Non-African Americans > 60 (> 60)
[2020-12-01 08:40] LABS: Neutrophils # 9.6 K/mcL (1.6-8.9)
[2020-12-01 09:11] LABS: Anisocytosis 1+ (Not Present)
[2020-12-01] MEDS: Insulin LISPRO 300 UNITS/3 ML VIAL SUBQ SCH ×4 (09:35→20:54)
[2020-12-01] MEDS: Tiotropium 10 INH DOSE IH SCH (09:38)
[2020-12-01] MEDS: Budesonide/Formoterol 160/4.5 1 PUFF INH IH SCH ×2 (09:38→21:10)
[2020-12-01] MEDS ORDERED: methylPREDNISolone 125 MG/2 ML VIAL IVP ONE (09:39)
[2020-12-01] MEDS ORDERED: Lactulose Oral Soln 20 GM/30 ML UDC PO ONE (09:40)
[2020-12-01 09:59] LABS: ABG Base Excess 9 mEq/L (-2 to 3); ABG HCO3 36 mEq/L (21-27); ABG Oxygen Saturation 95 % (95-98); ABG PCO2 58 mmHg (35-45); ABG PO2 81 mmHg (85-104); ABG TCO2 37 mEq/L (20-26)
[2020-12-01] MEDS ORDERED: Piperacillin/Tazobactam 3.375 GM in 0.9 % Sodium Chloride Mini Bag 100 ML IVPB ONE (10:00)
[2020-12-01] MEDS ORDERED: Vancomycin 1,500 MG/265 ML IV.SOLN IVPB ONE (10:00)
[2020-12-01 10:41] LABS: Bilirubin,Urine Negative (Negative); Blood,Urine Trace-intact (Negative); Clarity,Urine Clear (Clear); Color,Urine Yellow (Yellow); Glucose,Urine (UA) Normal (Normal); Ketones,Urine Trace mg/dL (Negative); Leukocyte Esterase,Urine Negative (Negative); Nitrite,Urine Negative (Negative); Protein,Urine Trace mg/dL (Neg-Trace); Urobilinogen,Urine Normal (Normal)
[2020-12-01 11:04] LABS: Amorphous Sediment,Urine Few per hpf (None-Few); Mucus,Urine Few per lpf (None-Few); RBC,Urine 0-3 per hpf (0-3)
[2020-12-01] MEDS ORDERED: Ibuprofen 400 MG TABLET PO ONE (11:09)
[2020-12-01] MEDS ORDERED: Ringers Solution, Lactated 1,000 ML IVC ONE ×2 (11:10→15:53)
[2020-12-01] MEDS ORDERED: Ipratropium/Albuterol Neb 3 ML IH SCH (16:15)
[2020-12-01] MEDS: Piperacillin/Tazobactam 3.375 GM in 0.9 % Sodium Chloride Mini Bag 100 ML IVPB SCH (16:47)
[2020-12-01] MEDS ORDERED: *HR* Warfarin 5 MG TABLET PO ONE (18:00)
[2020-12-01] MEDS: Ipratropium/Albuterol Neb 3 ML IH SCH (20:18)
[2020-12-01] MEDS: Mirtazapine 15 MG TABLET PO SCH (20:53)
[2020-12-01] MEDS: Insulin DETEMIR 100 UNIT/ML X5UNITS SUBQ SCH (20:54)
[2020-12-02] MEDS: Ipratropium/Albuterol Neb 3 ML IH SCH ×6 (00:04→20:17)
[2020-12-02] MEDS: Lactulose Oral Soln 20 GM/30 ML UDC PO SCH ×7 (01:12→23:29)
[2020-12-02] MEDS: Piperacillin/Tazobactam 3.375 GM in 0.9 % Sodium Chloride Mini Bag 100 ML IVPB SCH ×3 (01:13→17:49)
[2020-12-02 06:46] LABS: INR 2.2; Prothrombin Time 24.9 Seconds (9.4-12.1)
[2020-12-02] MEDS: Budesonide/Formoterol 160/4.5 1 PUFF INH IH SCH ×2 (07:35→20:20)
[2020-12-02] MEDS: rOPINIRole 1 MG TABLET PO SCH ×3 (08:05→20:55)
[2020-12-02] MEDS: predniSONE 20 MG TABLET PO SCH (08:05)
[2020-12-02] MEDS: Aspirin Enteric Coated 81 MG Tablet PO SCH (08:06)
[2020-12-02] MEDS: Magnesium Oxide 400 MG TABLET PO SCH (08:06)
[2020-12-02] MEDS: Loratadine 10 MG TABLET PO SCH (08:06)
[2020-12-02] MEDS: (Liraglutide [Victoza 3-Pak] 0.6 MG/0.1 ML Pen.Injctr) SQ SCH (08:07)
[2020-12-02] MEDS: Insulin LISPRO 300 UNITS/3 ML VIAL SUBQ SCH ×4 (08:08→20:54)
[2020-12-02] MEDS ORDERED: Insulin DETEMIR 100 UNIT/ML X5UNITS SUBQ SCH (09:00)
[2020-12-02 09:30] LABS: Basophils % 0.2 %; Hematocrit 28.3 % (35.3-44.9); Immature Granulocytes % 0.6 % (0-4); Lymphocytes % 11.1 %; Mean Corpuscular HGB Conc 28.3 g/dL (31.6-35.5); Mean Corpuscular Hemoglobin 29.4 pg (28.0-33.3); Mean Platelet Volume 10.8 fL (9.4-12.4); Monocytes # 0.5 K/mcL (0.0-1.3); Monocytes % 5.2 %; Neutrophils # 7.2 K/mcL (1.6-8.9); Platelet Count 158 K/mcL (140-400); Red Blood Count 2.72 M/mcL (3.82-4.97); Red Cell Distribution Width 21.3 % (11.5-14.5); Segmented Neutrophils % 82.9 %; White Blood Count 8.7 K/mcL (4.3-11.1)
[2020-12-02 09:48] LABS: Alanine Aminotransferase 16 Units/L (7-52); Albumin 2.8 g/dL (3.5-5.7); Albumin/Globulin Ratio 0.8 (1.1-2.2); Alkaline Phosphatase 124 Units/L (34-104); Aspartate Amino Transferase 21 Units/L (13-39); BUN/Creatinine Ratio 16 (6-26); Bilirubin,Total 0.3 mg/dL (0.3-1.0); Blood Urea Nitrogen 15 mg/dL (6-20); Calcium 8.7 mg/dL (8.6-10.3); Carbon Dioxide 36 mEq/L (23-29); Chloride 97 mEq/L (98-107); Globulin 3.5 g/dL (2.4-3.5); Glucose 270 mg/dL (70-105); Osmolality,Calculated 298 (280-300); Potassium 3.8 mEq/L (3.5-5.1); Sodium 139 mEq/L (136-145); Total Protein 6.3 g/dL (6.4-8.9); eGFR For African Americans > 60 (> 60); eGFR For Non-African Americans > 60 (> 60)
[2020-12-02 12:32] LABS: Anisocytosis 1+ (Not Present); Hypochromasia Present (Not Present); Macrocytosis Present (Not Present); Platelet Estimate Normal (Normal)
[2020-12-02] MEDS ORDERED: *HR* Warfarin 2 MG TABLET PO ONE (18:00)
[2020-12-02] MEDS: Insulin DETEMIR 100 UNIT/ML X5UNITS SUBQ SCH (20:53)
[2020-12-02] MEDS: Mirtazapine 15 MG TABLET PO SCH (20:55)
[2020-12-02] MEDS: *HR* HYDROcodone/Acet 10/325 mg TABLET PO PRN (21:07)
[2020-12-02] MEDS ORDERED: *HR* Dextrose 50 % in Water (Vial) 50 ML VIAL IVP PRN ×2 (22:56→23:18)
[2020-12-02] MEDS ORDERED: D5% in Water 1,000 ML IVC PRN ×2 (22:56→23:18)
[2020-12-02] MEDS ORDERED: Dextrose Gel 15 GM/37.5 ML TUBE PO PRN ×4 (22:56→23:18)
[2020-12-02] MEDS: Insulin LISPRO 300 UNITS/3 ML VIAL SUBQ PRN (23:27)
[2020-12-03] MEDS: Ipratropium/Albuterol Neb 3 ML IH SCH ×4 (00:26→12:31)
[2020-12-03] MEDS: Insulin LISPRO 300 UNITS/3 ML VIAL SUBQ PRN ×4 (00:35→03:35)
[2020-12-03] MEDS: Piperacillin/Tazobactam 3.375 GM in 0.9 % Sodium Chloride Mini Bag 100 ML IVPB SCH (01:37)
[2020-12-03] MEDS: Lactulose Oral Soln 20 GM/30 ML UDC PO SCH ×3 (03:36→12:12)
[2020-12-03 06:53] LABS: Prothrombin Time 22.4 Seconds (9.4-12.1)
[2020-12-03 07:09] VITALS: BP 122/60
[2020-12-03] MEDS ORDERED: Insulin LISPRO 300 UNITS/3 ML VIAL SUBQ SCH ×4 (07:30→21:00)
[2020-12-03] MEDS: Insulin LISPRO 300 UNITS/3 ML VIAL SUBQ SCH ×2 (08:35→12:12)
[2020-12-03] MEDS: Magnesium Oxide 400 MG TABLET PO SCH (08:39)
[2020-12-03] MEDS: Aspirin Enteric Coated 81 MG Tablet PO SCH (08:39)
[2020-12-03] MEDS: Loratadine 10 MG TABLET PO SCH (08:39)
[2020-12-03] MEDS: predniSONE 20 MG TABLET PO SCH (08:39)
[2020-12-03] MEDS: (Liraglutide [Victoza 3-Pak] 0.6 MG/0.1 ML Pen.Injctr) SQ SCH (08:40)
[2020-12-03] MEDS: rOPINIRole 1 MG TABLET PO SCH (08:40)
[2020-12-03] MEDS ORDERED: Insulin DETEMIR 100 UNIT/ML X5UNITS SUBQ SCH (09:00)
[2020-12-03] MEDS ORDERED: levoFLOXacin 750 MG TABLET PO SCH (09:00)
[2020-12-03 09:06] LABS: % Iron Saturation 54 % (15-50); Iron 127 mcg/dL (50-170); Transferrin 167 mg/dL (203-362)
[2020-12-03 09:24] LABS: Ferritin 461 ng/mL (10-120)
[2020-12-03 09:30] LABS: Folate 5.8 ng/mL (3.0-16.0)
[2020-12-03] MEDS: *HR* HYDROcodone/Acet 10/325 mg TABLET PO PRN (12:16)
[2020-12-03] MEDS: Budesonide/Formoterol 160/4.5 1 PUFF INH IH SCH (12:29)
[2020-12-03] MEDS ORDERED: *HR* Warfarin 2 MG TABLET PO ONE (18:00)
== END 2020-12-03 14:05 | disposition home health service (06) | DRG 945 ==
LOC: INPPIK 22:37
PROVIDERS: ADMIT Family Medicine; ATTEND Family Medicine